=== PATIENT | female | born 1990 | race Two or more races ===

== ENCOUNTER 2019-10-17 11:00 | Emergency (ER) | payer OTHER ==
[~2019-10-17] VITALS: Ht 154.9 cm; Wt 49.9 kg
[~2019-10-17 11:00] MED LIST: MECLIZINE HCL25 MG PO; SPRINTEC 28 DA1 EACH PO
== END 2019-10-17 14:03 | disposition home or self-care (01) ==
LOC: ER 11:00
DX: R07.89 Other chest pain (principal); F41.8 Other specified anxiety disorders

== ENCOUNTER 2020-02-05 13:25 | Emergency (ER) | payer OTHER ==
[~2020-02-05] VITALS: Ht 154.9 cm; Wt 49.9 kg
[2020-02-05] MEDS ORDERED: ZITHROMAX500 MG PO (15:49)
== END 2020-02-05 16:10 | disposition home or self-care (01) ==
LOC: ER 13:25
DX: R07.89 Other chest pain (principal); R51.9 Headache, unspecified; B96.0 Mycoplasma pneumoniae [M. pneumoniae] as the cause of diseases classified elsewhere; F41.8 Other specified anxiety disorders; Z03.818 Encounter for observation for suspected exposure to other biological agents ruled out

== ENCOUNTER → 2022-06-01 | Emergency (ER) | payer OTHER ==
[~2022-06-01] VITALS: Ht 154.9 cm; Wt 52.2 kg
[~2022-06-01] MED LIST changes: +ZITHROMAX500 MG PO
== END | disposition home or self-care (01) ==
LOC: ER 00:30
DX: Z53.21 Procedure and treatment not carried out due to patient leaving prior to being seen by health care provider (principal)